=== PATIENT | male | born 1990 | race Caucasian/White ===

== ENCOUNTER 2019-05-19 20:29 | Emergency (ER) | payer OTHER ==
[~2019-05-19] VITALS: Ht 157.5 cm; Wt 68.0 kg
[2019-05-19 21:09] LABS: ABSOLUTE BASOPHILS 0.1 thou/uL (0.0-0.2); ABSOLUTE LYMPHOCYTES 3.7 thou/uL (0.8-5.3); ABSOLUTE MONOCYTES 0.8 thou/uL (0.0-1.2); ABSOLUTE NEUTROPHILS 7.4 thou/uL (1.6-8.1); BASOPHILS 0.6 %; EOSINOPHILS 0.4 %; HEMATOCRIT 43.9 % (42.0-52.0); HEMOGLOBIN 14.9 gm/dL (14.0-18.0); LYMPHOCYTES 30.7 %; MCH 31.3 pg (26.0-34.0); MCHC 33.9 g/dL (28.0-37.0); MCV 92.2 fL (80.0-100.0); MPV 10.6 fl. (7.2-11.1); NUCLEATED RBCS 0 /100WBC; PLATELET COUNT* 284 thou/uL (150-400); POLYS 61.3 %; RBC 4.76 mil/uL (4.50-6.00); RDW-CV 12.8 % (10.5-14.5); WBC 12.1 thou/uL (4.0-11.0)
[2019-05-19 21:25] LABS: CALCIUM 9.8 mg/dL (8.5-10.1); CREATININE 1.2 mg/dL (0.6-1.3); POTASSIUM 3.6 mmol/L (3.5-5.1)
[2019-05-19 21:29] LABS: ALBUMIN 4.8 g/dL (3.4-5.0); TOTAL BILIRUBIN 0.6 mg/dL (<0.1-1.0); TOTAL PROTEIN 7.9 g/dL (6.4-8.2)
[2019-05-19 21:36] LABS: APTT 27.5 Seconds (25.0-31.3); INR 1.1; PROTIME 10.9 Seconds (9.20-11.50)
[2019-05-19] MEDS ORDERED: PRINIVIL5 MG PO (23:36)
[2019-05-20 00:04] VITALS: BP 126/68
--- NOTE | 2019-05-20 11:43 | EKG ---
[place] [address] ELECTROCARDIOGRAM REPORT Name: SANDEEP LEON Room: [facility]#: [id number] Admission: 05/19/19 Attend Phys: Discharge: 05/20/19 Date of : 89 Report #: [id number] THIS REPORT FOR: //name// [facility] ED Test Date: 2019-05-19 Test Time: 20:34:03 Pat Name: SANDEEP LEON Department: Room: Gender: M Provider Scribe: : [id number] Requested By: Vanda Alberts Order Number: [id number] MD: Eric Bullock Measurements Intervals [place] Rate: 80 P: 45 [place]: 139 QRS: 36 QRSD: 102 T: 30 QT: 361 QTc: 417 Interpretive Statements Sinus rhythm Minimal ST depression, diffuse leads No previous ECG available for comparison Electronically Signed On 05-20-2019 11:42:55 PAVER [employer] by Eric Bullock [email or web address] <ELECTRONICALLY SIGNED> By: Loly Bullock MD, [facility] 05/20/19 [id number] 2034 Loly Bullock MD, FACC /EPI
== END 2019-05-20 | disposition home or self-care (01) ==
LOC: M.ERS 20:29
PROVIDERS: Personal Emergency Response Attendant
DX: I16.0 Hypertensive urgency (principal); F41.9 Anxiety disorder, unspecified